=== PATIENT | male | born 1945 | race Caucasian/White ===

== ENCOUNTER 2017-09-12 09:08 | Outpatient (CLI) | payer MEDICARE ==
--- NOTE | 2017-09-12 10:53 | RAD ---
CHEST 2 VIEWS: HISTORY: Dyspnea. COMPARISON: 12/19/16. FINDINGS: Cardiac silhouette and pulmonary vasculature are unremarkable. Mediastinum is midline. Lungs remain hyperinflated. No confluent airspace consolidation, pneumothorax, or pleural fluid. IMPRESSION: Chronic obstructive pulmonary disease. Stable radiographic appearance of the chest. POS: [facility]
== END 2017-09-12 09:09 | disposition home or self-care (01) ==
LOC: RAD 09:08
PROVIDERS: ATTEND Internal Medicine Critical Care Medicine
DX: R06.00 Dyspnea, unspecified (principal); J44.9 Chronic obstructive pulmonary disease, unspecified
CPT/HCPCS: 71046

== ENCOUNTER 2018-02-16 09:41 | Emergency (ER) | payer MEDICARE ==
--- NOTE | 2018-02-16 13:55 | ULT ---
ULTRASOUND WITH DOPPLER DUPLEX VENOUS LOWER EXTREMITY RIGHT: HISTORY: 72-year-old male with right lower extremity pain and edema. TECHNIQUE: Color flow Doppler, spectral waveform analysis of pulsed Doppler, and whipple-scale imaging with kike yinka and augmentation, were used to evaluate the right common femoral, femoral, popliteal, posterior tibial, and superficial femoral, veins; and the proximal portions of the profunda femoral and greater saphenous, veins. FINDINGS: There is normal compressibility, demonstration of blood flow by color Doppler and pulsed Doppler, and response to augmentation, in all interrogated veins. IMPRESSION: Negative. No deep vein thrombosis in the right lower extremity. jn [] POS: [facility]
== END 2018-02-16 12:21 | disposition home or self-care (01) ==
LOC: ERS 09:41
DX: M62.838 Other muscle spasm (principal); Z79.82 Long term (current) use of aspirin; Z79.899 Other long term (current) drug therapy

== ENCOUNTER 2018-04-24 14:23 | Outpatient (CLI) | payer MEDICARE ==
--- NOTE | 2018-04-24 15:57 | MRI ---
MRI LUMBAR SPINE PERFORMED WITHOUT CONTRAST ENHANCEMENT: Date: 04/24/18 HISTORY: Back pain and right leg weakness. FINDINGS: The vertebral bodies are normal in height. There is severe degenerative disc narrowing at the L5-S1 l evel. There are some marrow edema changes, mainly associated with the superior end plate of L2. On th e T1 sequence, there is a little lucency along the anterior superior corner of the vertebral body. I suspect this is related to some minimal compression injury at this level. There is no significant periaortic adenopathy. The visualized portions of the kidneys show T2 hyperin tense lesion involving the left kidney, most likely a cyst. L1-2: Disc bulge without canal or foraminal stenosis. L2-3: Disc bulge with some ligamentous hypertrophic changes with a mild degree of canal stenosis wit h mild left foraminal narrowing. No significant right foraminal narrowing. L3-4: Canal shows borderline stenosis with moderate degenerative facet and some ligamentous hypertro phic change. There is moderately severe left-sided foraminal stenosis. L4-5: There is a central annular tear and small disc protrusion, slightly more right paracentral in location. There is mild to moderate bilateral foraminal narrowing, greater on the left. L5-S1: No central canal stenosis. Disc bulge and facet changes are associated with some very mild ri ght and more pronounced left foraminal stenosis. IMPRESSION: 1. Minimal edema changes involving the L2 vertebral body, probably related to some minimal superior end plate compression. There appears to be a subtle trabecular fracture seen on the anterior superior portion of the L2 vertebral body. 2. Multilevel canal and foraminal stenosis as discussed above. POS: [facility]
== END 2018-04-24 14:24 | disposition home or self-care (01) ==
LOC: TBSIIMAG 14:23
PROVIDERS: ATTEND Neurological Surgery
DX: M54.16 Radiculopathy, lumbar region (principal); M48.061 Spinal stenosis, lumbar region without neurogenic claudication
CPT/HCPCS: 72148

== ENCOUNTER 2018-10-16 12:56 | Outpatient (CLI) | payer MEDICARE ==
--- NOTE | 2018-10-16 13:30 | RAD ---
XR Chest Pa Lat @ [facility] HISTORY: Dyspnea COMPARISON: 09/11/2018 FINDINGS: The heart size is normal. The lungs are well expanded without focal areas of consolidation, pneumothorax or pleural effusions. IMPRESSION: No radiographic evidence of acute cardiopulmonary process.
== END 2018-10-16 12:57 | disposition home or self-care (01) ==
LOC: RAD 12:56
PROVIDERS: ATTEND Internal Medicine Critical Care Medicine
DX: R06.00 Dyspnea, unspecified (principal)
CPT/HCPCS: 71046

== ENCOUNTER 2019-03-18 09:02 | Day surgery (SDC) | payer MEDICARE ==
[2019-03-17 12:49] VITALS: BMI 24.7
[2019-03-18] MEDS ORDERED: Lidocaine 1% w/Epinephrine 1:100K 20 ML VIAL ONE (11:18)
== END 2019-03-18 12:10 | disposition home or self-care (01) ==
LOC: CCL 09:02
PROVIDERS: ATTEND Internal Medicine Cardiovascular Disease
PROC: 0JH632Z Insertion of Monitoring Device into Chest Subcutaneous Tissue and Fascia, Percutaneous Approach (ICD-10-PCS; principal; 2019-03-18)
DX: I48.19 Other persistent atrial fibrillation (principal); I10 Essential (primary) hypertension; E03.9 Hypothyroidism, unspecified; E78.5 Hyperlipidemia, unspecified; F17.290 Nicotine dependence, other tobacco product, uncomplicated; I48.3 Typical atrial flutter; Z79.01 Long term (current) use of anticoagulants; Z79.899 Other long term (current) drug therapy
CPT/HCPCS: 33285; 93005; 93010

== ENCOUNTER 2020-09-27 09:41 | Outpatient (CLI) | payer MEDICARE | END 2020-09-27 09:42 | disposition home or self-care (01) | LOC: BICRAD 09:41 | PROVIDERS: ATTEND Internal Medicine Critical Care Medicine | DX: R06.00 Dyspnea, unspecified (principal); R91.8 Other nonspecific abnormal finding of lung field | CPT/HCPCS: 71046 ==

== ENCOUNTER 2021-09-26 09:35 | Outpatient (CLI) | payer MEDICARE | END 2021-09-26 09:36 | disposition home or self-care (01) | LOC: RAD 09:35 | PROVIDERS: ATTEND Internal Medicine Critical Care Medicine | DX: R06.00 Dyspnea, unspecified (principal) | CPT/HCPCS: 71046 ==

== ENCOUNTER 2022-12-11 09:34 | Outpatient (CLI) | payer MEDICARE | END 2022-12-11 09:35 | disposition home or self-care (01) | LOC: SCSMRI 09:34 | PROVIDERS: ATTEND Neurological Surgery | DX: M51.36 Other intervertebral disc degeneration, lumbar region (principal); M47.816 Spondylosis without myelopathy or radiculopathy, lumbar region; M89.38 Hypertrophy of bone, other site | CPT/HCPCS: 72148 ==

== ENCOUNTER 2023-09-24 10:46 | Outpatient (CLI) | payer MEDICARE | END 2023-09-24 10:47 | disposition home or self-care (01) | LOC: RAD 10:46 | PROVIDERS: ATTEND Internal Medicine Critical Care Medicine | DX: R06.00 Dyspnea, unspecified (principal) | CPT/HCPCS: 71046 ==

== ENCOUNTER 2025-02-19 08:42 | Outpatient (CLI) | payer OTHER ==
[2025-02-19] MEDS ORDERED: Iopamidol-370 76% 500 ML MDV (1 ML CHARGE) ONE (13:47)
== END 2025-02-19 08:43 | disposition home or self-care (01) ==
LOC: NM 08:42
PROVIDERS: ATTEND Internal Medicine
DX: C67.9 Malignant neoplasm of bladder, unspecified (principal); M19.012 Primary osteoarthritis, left shoulder; M19.011 Primary osteoarthritis, right shoulder; T84.84XA Pain due to internal orthopedic prosthetic devices, implants and grafts, initial encounter
CPT/HCPCS: 71260; 74177; 78306; A9503; Q9967